=== PATIENT | female | born 1970 | race Caucasian/White ===

== ENCOUNTER 2016-12-09 17:05 | Inpatient (IN) ==
[2016-12-09] MEDS ORDERED: Naloxone 0.4 MG/ML INJ IVP PRN (21:42)
[2016-12-09] MEDS ORDERED: Acetaminophen 325 MG TABLET PO PRN (21:42)
[2016-12-09] MEDS ORDERED: Ondansetron ODT 4 MG TAB.RAPDIS SL PRN (21:42)
--- NOTE | 2016-12-09 21:49 | Internal Med History&Physical ---
Addendum entered and electronically signed by Sim Sears DO 12/10 01:42: date of note was 12/09/2016 Original Note: <Sim Sears - Last Filed: 12/10/16 01:00> Date of Encounter: 12/10/16 Time of Encounter: 21:00 Assessment and Plan (1) Cat bite of hand Current visit: Yes Status: Acute Patient suffered a domestic house cat bites at 1:30 this morning. The bite has become infected she is demonstrated cellulitis of the dorsal aspects of her left hand, clear serous drainage from the bite sites. The surface is warm to touch erythematous, no crepitus appreciated on examination. She has a low- grade fever. - CT hand demonstrates gas above the left MCP joint with high risk for infectious tenosinovitis- Orthopedics called and discussed case Plan: - IV Unasyn and Vancomycin - Acetaminophen for pain and fever - IV Toradol for pain. - Consult to Dr. Robertson orthopedic surgery. - NPO now. Qualifiers: Qualified Code(s): S61.459A - Open bite of unspecified hand, initial encounter; W55.01XA - Bitten by cat, initial encounter (2) Cellulitis Current visit: Yes Status: Acute As discussed above. Qualifiers: Qualified Code(s): L03.90 - Cellulitis, unspecified (3) History of migraine Current visit: Yes Status: Acute Patient has a history of chronic migraines which she takes sumatriptan and Topamax. States that the migraines are from her scoliosis and back pain. Plan: - Continue migraine treatment. (4) Chronic neck pain Current visit: Yes Status: Acute Per history. Patient has obvious scoliosis (5) DVT prophylaxis Current visit: Yes Status: Acute SCDs. Internal Medicine - H&P: HPI Chief complaint: Left hand swelling Admitted From: Home Plans for Post Hospital Care: Home History of present illness: Ms. Garsia is a 46 year old female presents with history of anxiety, scoliosis, chronic neck pain, migraines was transferred from an outside hospital for cellulitis of the left dorsal hand. Ms. garsia says that last evening around 1: 30 AM she was sleeping and was awoken by her cat who was fighting with another Through the window. She went to shut the window and put her hand on the lower half of the window in her cat bit the back of her hand and ring finger. She said she did not think much of it, put hydrogen peroxide on the wound and then wrapped her hand. When she unwrapped her hand this afternoon the dorsal surface was warm, swollen and clear drainage from the wounds. The erythema covering the back of her hand which was very tight to flexing her fingers at the PIP or MCP joints. She became concerned and went to the emergency department for evaluation. She denies any significant pain but has some tenderness to light palpation. She has a low-grade fever, denies any nausea vomiting diarrhea constipation chest pain chest pressure palpitations, lightheadedness dizziness or any other symptoms. She said that the nurses at the outside facility side red streak running up the left side of her hand and outlined it with a marker. With regards to her cat the cat is an indoor cat it does not have any vaccinations she also lives with a dog at [facility] and a guinea pig. The cat was recently until 1 month ago living with her neighbor and ran away for 2 or 3 weeks. She found the cat outside and had suffered a scratch wound that got infected to its back. She wanted taking the Back and it is an indoor cat. She has a cat having any abnormal behaviors, or appearing ill. At the outside hospital [facility] she received Zosyn and amoxicillin and received a tetanus shot. Past Med Surg Social Fam HX - Past Medical History Medical history: arthritis, asthma, GERD, hyperlipidemia, other Psychiatric history: anxiety, depression - Past Surgical History Surgical History: orthopedic, other - Social History Smoking Status: Current every day smoker Smokeless Tobacco Status: No Alcohol use: none Drug use: none - Family History Mother Living Status: Hx Family Cancer: Yes (Cervical) Father Living Status: Hx Family Cancer: Yes (Lung) Internal Medicine - H&P: Meds Bupropion HCl [Wellbutrin Xl] 300 mg PO DAILY 12/09/16 [History] DULoxetine [Cymbalta] 30 mg PO DAILY 12/09/16 [History] DiphenhydraMINE [Benadryl] 25 mg PO Q6H PRN 12/09/16 [History] Fluticasone Propionate Nasal [Flonase] 50 mcg NS DAILY 12/09/16 [History] Fluticasone/Salmeterol [Advair Hfa 230-21 Mcg Inhaler] 2 puff IH BID 12/09/16 [ History] HYDROcodone/Acet 5/325 mg [[place] 5-325 mg] 1 tab PO Q12H PRN 12/09/16 [History] Ipratropium/Albuterol Neb [Duoneb] 3 ml IH QAM 12/09/16 [History] Ipratropium/Albuterol Sulfate [Combivent Respimat Inhal [place]] 1 puff IH QID 05/16 [History] LORazepam [Ativan] 0.5 mg PO BID PRN 12/09/16 [History] Methocarbamol [Robaxin] 500 mg PO Q8HR 12/09/16 [History] [place]-3/Dha/Epa/Fish Oil [Fish Oil 1,000 mg Softgel] 1,000 mg PO TID 12/09/16 [ History] Psyllium Husk/Aspartame [Metamucil Fiber Singles Packet] 3.4 gm PO BID 12/09/16 [History] SUMAtriptan Succinate [Imitrex] 100 mg PO DAILY PRN 12/09/16 [History] Topiramate [Topamax] 25 mg PO BID 12/09/16 [History] Allergies ethinyl estradiol [From Seasonale contraceptive] Allergy (Verified 09/06/15 10: 26) See Comments levonorgestrel [From Seasonale contraceptive] Allergy (Verified 09/06/15 10:26) See Comments soy Allergy (Verified 09/06/15 10:26) See Comments azithromycin Adverse Reaction (Verified 09/06/15 10:26) Dizziness gabapentin [From Neurontin] Adverse Reaction (Verified 09/06/15 10:26) See Comments weight gain All Systems PM: A 10-system review of systems was performed and is negative for pertinent findings except as documented above in the HPI. - Constitutional Constitutional: fever(s) - EENT Eyes: no change in vision, no discharge, no pain, no photophobia Ears: no ear discharge, no ear pain, no tinnitus Nose, mouth and throat: no dysphagia, no nasal discharge, no neck pain, no sore throat - Cardiovascular Cardiovascular ROS IM: no chest pain, no diaphoresis, no dyspnea, no lightheadedness, no palpitations, no syncope - Respiratory Respiratory: no cough, no dyspnea, no wheezing, no excessive phlegm production - Gastrointestinal Gastrointestinal: no abdominal pain, no diarrhea, no hematemesis, no hematochezia, no melena, no nausea, no vomiting - Genitourinary Genitourinary: no change in urinary stream, no dysuria, no flank pain, no hematuria - Musculoskeletal Musculoskeletal ROS IM: no numbness, no tingling - Integumentary Integumentary IM: erythema, new lesions, sores, no rash, no unusual bruising - Neurological Neurological ROS: no confusion, no convulsions, no focal weakness, no numbness, no tingling, no tremor(s) - Hematologic/Lymphatic Hematologic/Lymphatic: no easy bruising - Constitutional Vitals: Temp Pulse Resp BP Pulse Ox 100.2 F H 87 15 105/70 95 12/09/16 20:15 12/09/16 20:15 12/09/16 20:15 12/09/16 20:15 12/09/16 20:15 Exam: General: Patient alert, awake, oriented 3, interactive, in no acute distress HEENT: Normocephalic, atraumatic, pupils equal reactive to light, nasal cavity patent and open septum median position, oral mucosa moist, uvula midline, neck supple trachea midline no palpable lymphadenopathy, no thyromegaly. Chest: Symmetric bilateral correlating with respiratory effort, effort nonlabored. Cardiac: Regular rate and rhythm, positive S1 and S2. no bruits appreciated bilateral carotids, Radial pulses 2+ bilateral, posterior tibial and dorsal pedal pulses 2+ bilateral. Respiratory: Clear to auscultation all lung gupta Abdomen: Soft, nontender, positive bowel sounds, no palpable masses appreciated on examination Extremities: Symmetric bilateral, patient has erythema, edema and serous drainage from bite mehta on the dorsal aspect of her left hand. The palmar surfaces without erythema or edema. Limited flexion at the MCP and PIP joints. She has trace edema in bilateral lower extremities for which she says chronic , right upper extremity without any acute findings. Back has scoliosis. Neurologic: No focal deficits appreciated on examination. Face symmetric, muscle strength symmetric bilateral upper and lower extremities. <Cipriano Jimenez - Last Filed: 12/10/16 01:53> Date of Encounter: 12/10/16 - Constitutional Constitutional: fever(s), no night sweats - Cardiovascular Cardiovascular ROS IM: no chest pain, no dyspnea - Musculoskeletal Musculoskeletal ROS IM: joint swelling (hand and MCP joint affectd by bite wound ) - Constitutional Vitals: Temp Pulse Resp BP Pulse Ox 98.3 F 89 14 100/67 95 12/09/16 23:10 12/09/16 23:10 12/09/16 23:10 12/09/16 23:10 12/09/16 23:10 General appearance: Present: cooperative, A&O X 3, pleasant - Eye Eye exam: Present: EOMI, PERRL. Absent: scleral icterus Pupils: Present: normal accommodation - ENT ENT exam: Present: mucous membranes dry, normal exam - Neck Neck exam general surgery: Present: supple - Respiratory Respiratory exam: Present: CTAB. Absent: rales, rhonchi, wheezes - Cardiovascular Cardiovascular exam: Present: RRR, +S1, +S2 - GI/Abdominal GI/Abdominal exam: Present: soft. 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 - Back Exam Back exam: Absent: CVA tenderness (L), CVA tenderness (R) Internal Med - H&P Results - Impressions ITS Impressions Hand CT 12/09/16 22:02 IMPRESSION: 1. At this time, the infectious process occurring in the dorsal aspect of the hand appears to be relatively superficial, without convincing evidence of fluid or gas within the tenosynovial sheath, and without definite involvement of the intrinsic musculature of the hand. 2. Note, however, that CT is suboptimal when evaluating the soft tissue structures of the hand. 3. No bony changes are found at this time. No radiopaque foreign bodies are seen. 4. This patient should be considered at very high risk for development of infectious tenosynovitis, as the soft tissue gas and the swelling is seen immediately superficial to the extensor tendon of the ring finger. D/ / Iván Duarte MD / Iván Duarte MD Interpreting Provider: Iván Duarte MD - Diagnostic Studies Other Images Status: image reviewed by me (CT hand viewed and report reviewed) - Attending Attestation I discussed the patient TE-MOAK, PMH, ROS, lab data, and exam findings with Dr. Sears. I then saw and examined patient as well. After assessing patient, I called and discussed with Dr. Sena as I am concerned she may need surgery later today or tomorrow. He and I discussed the case, and he reviewed the CT as well. We will continue IV antibiotics and monitor closely. He will see her in the morning and guide us form an orthopedic standpoint. Other than my comments and noted exam findings, I agree with Dr. Sears's assessment and plan.
[2016-12-09] MEDS ORDERED: Vancomycin 1,000 MG in D5% in Water 250 ML IVPB SCH (23:45)
[2016-12-10] MEDS ORDERED: Piperacillin/Tazobactam 3.375 GM in D5% in Water (Mini-Bag+) 100 ML IVPB SCH
[2016-12-10] MEDS: Vancomycin 1,000 MG in D5% in Water 250 ML IVPB SCH ×2 (00:16→12:57)
[2016-12-10] MEDS: Ampicillin/Sulbactam 3,000 MG in 0.9 % Sodium Chloride Mini Bag 100 ML IVPB SCH ×5 (00:16→23:58)
[2016-12-10] MEDS ORDERED: *HR* LORazepam 0.5 MG TABLET PO PRN (01:02)
[2016-12-10] MEDS ORDERED: *HR* HYDROcodone/Acet 5/325 mg TABLET PO PRN (01:02)
[2016-12-10] MEDS ORDERED: SUMAtriptan succinate 50 MG TABLET PO PRN (01:02)
[2016-12-10] MEDS: Ketorolac 30 MG/ML VIAL IVP PRN ×2 (03:15→18:04)
--- NOTE | 2016-12-10 06:00 | Orthopedic Consult Note ---
Date of Encounter: 12/10/16 Time of Encounter: 05:54 Assessment and Plan (1) Cat bite of hand Current Visit: Yes Status: Acute I did explain the diagnosis in detail with the patient. She has left dorsal hand cat bite cellulitis. There is an associated small puncture wound with minimal clearish drainage which was cultured. The patient does have improvement since beginning IV antibiotics and Toradol last night. I do not appreciate any drainable fluid collection at this point, and given the patient' s improvement my recommendation is for continued observation on IV antibiotics. Ice, elevation, and Toradol should help with symptom control. I did indicate that should symptoms worsen despite IV antibiotics then she may require bedside or even operative incision, drainage, irrigation, and debridement. I will check on her later this afternoon to reevaluate her and check her clinical progress. Qualifiers: Qualified Code(s): S61.452A - Open bite of left hand, initial encounter; W55.01XA - Bitten by cat, initial encounter History of Present Illness HPI: Ms. Garsia is a 46 year old female who was a transfer from [facility] in [facility]. Just over 24 hours ago she was bitten by her cat on her left dorsal hand. She said she sustained 3 puncture wounds, one on the dorsal hand between the long and ring fingers just proximal to the metacarpophalangeal joint areas, one along the ulnar proximal aspect of the ring finger and one near her thumb base. She washed the wounds with peroxide and placed in Scooby wrap but several hours later she had significant pain that was worsening. She went to [facility] where an x-ray was obtained that demonstrated subcutaneous gas. The emergency department physician was concerned about a significant hand infection and the patient was transferred to our [facility] to the hospitalist. The hospitalist consult to me for further evaluation and management. Since being admitted the patient was placed on Unasyn and vancomycin as well as when necessary and Toradol. She did get a dose of Toradol last night. The patient indicates that she has had improvement of the hand pain as well as improve mobility of the digits. She reports no feelings of illness or constitutional symptoms. She indicates that the cat was hers but does not have its shots. Past Med Surg Social Fam HX - Past Medical History Medical history: arthritis, asthma, GERD, hyperlipidemia, other Psychiatric history: anxiety, depression - Past Surgical History Surgical History: orthopedic, other - Social History Smoking Status: Current every day smoker Smokeless Tobacco Status: No Alcohol use: none Drug use: none - Family History Mother Living Status: Hx Family Cancer: Yes (Cervical) Father Living Status: Hx Family Cancer: Yes (Lung) Medications and Allergies Bupropion HCl [Wellbutrin Xl] 300 mg PO DAILY 12/09/16 [History] DULoxetine [Cymbalta] 30 mg PO DAILY 12/09/16 [History] DiphenhydraMINE [Benadryl] 25 mg PO Q6H PRN 12/09/16 [History] Fluticasone Propionate Nasal [Flonase] 50 mcg NS DAILY 12/09/16 [History] Fluticasone/Salmeterol [Advair Hfa 230-21 Mcg Inhaler] 2 puff IH BID 12/09/16 [ History] HYDROcodone/Acet 5/325 mg [[place] 5-325 mg] 1 tab PO Q12H PRN 12/09/16 [History] Ipratropium/Albuterol Neb [Duoneb] 3 ml IH QAM 12/09/16 [History] Ipratropium/Albuterol Sulfate [Combivent Respimat Inhal [place]] 1 puff IH QID 05/16 [History] LORazepam [Ativan] 0.5 mg PO BID PRN 12/09/16 [History] Methocarbamol [Robaxin] 500 mg PO Q8HR 12/09/16 [History] [place]-3/Dha/Epa/Fish Oil [Fish Oil 1,000 mg Softgel] 1,000 mg PO TID 12/09/16 [ History] Psyllium Husk/Aspartame [Metamucil Fiber Singles Packet] 3.4 gm PO BID 12/09/16 [History] SUMAtriptan Succinate [Imitrex] 100 mg PO DAILY PRN 12/09/16 [History] Topiramate [Topamax] 25 mg PO BID 12/09/16 [History] Allergies ethinyl estradiol [From Seasonale contraceptive] Allergy (Verified 09/06/15 10: 26) See Comments levonorgestrel [From Seasonale contraceptive] Allergy (Verified 09/06/15 10:26) See Comments soy Allergy (Verified 09/06/15 10:26) See Comments azithromycin Adverse Reaction (Verified 09/06/15 10:26) Dizziness gabapentin [From Neurontin] Adverse Reaction (Verified 09/06/15 10:26) See Comments weight gain All Systems Reviewed: Constitutional and musculoskeletal systems were reviewed and are negative unless otherwise stated in history of present illness. Physical Exam - Constitutional Vitals: Temp Pulse Resp BP Pulse Ox 98.3 F 89 14 100/67 95 12/09/16 23:10 12/09/16 23:10 12/09/16 23:10 12/09/16 23:10 12/09/16 23:10 CONSTITUTIONAL -Vitals reviewed -The patient is well developed, well nourished, well groomed PSYCHIATRIC -Fully alert and oriented x 3 -Pleasant mood LEFT UPPER EXTREMITY Inspection shows 3 small puncture wounds over the left hand, one along the hand dorsum between the long and ring fingers about a centimeter proximal to the metacarpophalangeal joints. The puncture is about 2 mm long and I can express a minimal amount of clearish fluid which I cultured. There is another puncture wound along the ulnar base of the ring finger which is scabbed over as well as a minimal puncture over the base of the left thumb radially. There is a slight hue of erythema along the hand dorsum which has been outlined by the transferring hospital, and there has been no spread. The patient indicates that the redness has improved a bit. There is a mild amount of edema along the hand dorsum which does not pit. There is tenderness to palpation diffusely about the hand dorsum especially over the area of the draining wound. There is no induration or fluctuance or crepitations. The palmar side of the hand shows no erythema or tenderness. Diagnostic Imaging: I did personally review and interpret a CT scan of the left hand obtained late last night which does show a small amount of subcutaneous gas dorsally associated with the draining wound. No retained foreign bodies are noted. Labs From Transferring Hospital CBC, ESR, and CRP lie within normal limits Results - Labs Labs: All other labs normal. Consult Discharge Plan - Plan Referrals: Mahad Harris MD [Primary Care Provider] -
[2016-12-10] MEDS: Ipratropium 1 PUFF INHALER IH SCH ×4 (06:06→22:44)
[2016-12-10 06:35] LABS: Basophils % 0.3 %; Eosinophils # 0.1 K/mcL (0.0-0.6); Hematocrit 38.5 % (35.3-44.9); Hemoglobin 12.4 g/dL (11.5-15.4); Immature Granulocytes % 0.3 % (0-4); Lymphocytes # 1.8 K/mcL (0.6-4.6); Lymphocytes % 20.8 %; Mean Corpuscular HGB Conc 32.2 g/dL (31.6-35.5); Mean Corpuscular Hemoglobin 30.4 pg (28.0-33.3); Mean Corpuscular Volume 94.4 fL (83.0-100.0); Mean Platelet Volume 8.8 fL (9.4-12.4); Monocytes % 10.8 %; Neutrophils # 5.9 K/mcL (1.6-8.9); Platelet Count 312 K/mcL (140-400); Red Blood Count 4.08 M/mcL (3.82-4.97); Segmented Neutrophils % 66.8 %
[2016-12-10 07:06] LABS: BUN/Creatinine Ratio 13 (6-26); Blood Urea Nitrogen 9 mg/dL (7-20); Calcium 8.8 mg/dL (8.6-10.8); Carbon Dioxide 26 mEq/L (19-29); Chloride 107 mEq/L (98-109); Glucose 90 mg/dL (70-99); Osmolality,Calculated 284 (280-300); Potassium 4.1 mEq/L (3.5-4.5); eGFR For African Americans > 60 (> 60); eGFR For Non-African Americans > 60 (> 60)
[2016-12-10 07:07] LABS: Sodium 138 mEq/L (136-145)
[2016-12-10] MEDS ORDERED: NON-FORMULARY MEDICATION 1 EACH EACH (Ipratropium/Albuterol Sulfate [Combivent Respimat In IH SCH (09:00)
[2016-12-10] MEDS ORDERED: Ipratropium/Albuterol Neb 3 ML IH SCH (09:00)
[2016-12-10] MEDS: BuPROPion XL (24 HR) 150 MG TABLET PO SCH (10:22)
[2016-12-10] MEDS: Topiramate 25 MG TABLET PO SCH ×2 (10:22→19:37)
[2016-12-10] MEDS ORDERED: Ipratropium/Albuterol Neb 3 ML IH PRN (11:20)
--- NOTE | 2016-12-10 11:25 | Internal Med Progress Note ---
Date of Encounter: 12/10/16 Time of Encounter: 11:22 - Assessment and plan (1) Cat bite of hand Current Visit: Yes Status: Acute Assessment and plan: No signs of tendon involvement No loculated fluid collection / no abscess noticed improving cont empirical abx with Unasyn + [facility] is on board Qualifiers: Qualified Code(s): S61.452A - Open bite of left hand, initial encounter; W55.01XA - Bitten by cat, initial encounter (2) Cellulitis Current Visit: Yes Status: Acute Assessment and plan: due to cat bite improving cont empirical abx Qualifiers: Qualified Code(s): L03.90 - Cellulitis, unspecified (3) Chronic neck pain Current Visit: Yes Status: Acute Assessment and plan: Resumed home pain meds (4) Asthma Current Visit: Yes Status: Chronic Assessment and plan: Not in exaerbation placed on Duonebs PRN here Qualifiers: Qualified Code(s): J45.30 - Mild persistent asthma, uncomplicated (5) Tobacco dependence Current Visit: Yes Status: Acute Assessment and plan: Counseled to quit smoking placed on nicotine patch (6) History of migraine Current Visit: Yes Status: Acute (7) DVT prophylaxis Current Visit: Yes Status: Acute Assessment and plan: on SQ heparin - Subjective Interval history: This is a 46 y/o F with known PMH of anxiety, chronic neck pain with narcotic dependent and migraine HAs pt admitted with Left hand cellulitis due to a cat bite. Pt stated her pain and swelling was better early this morning, however now she started feeling little more swelling and pain in her hand. No fever. NO N / V. - Constitutional Vitals: Temp Pulse Resp BP Pulse Ox 97.7 F 59 16 95/60 96 12/10/16 10:49 12/10/16 10:49 12/10/16 10:49 12/10/16 10:49 12/10/16 10:49 General appearance: Present: cooperative, A&O X 3, pleasant - Respiratory Respiratory exam: Present: decreased breath sounds, wheezes. Absent: rales, respiratory distress, rhonchi - Cardiovascular Cardiovascular exam: Present: RRR, +S1, +S2. Absent: diastolic murmur, gallop, rubs, systolic murmur - GI/Abdominal GI/Abdominal exam: Present: soft. Absent: distended, tenderness - Extremities Exam Additional comments: improving erythema and swelling over Left dorsum of hand noticed. a small cat bite long over proximal 4th MTP joint noticed. No active discharge / drainage noticed.No localized / loculated fluid collection noticed Internal Medicine: Result - Labs CBC & Chem 7: 12/10/16 05:35 12/10/16 05:35 Labs: Short CBC 12/10/16 Range/Units 05:35 WBC 8.8 (4.3-11.1) K/mcL Hgb 12.4 (11.5-15.4) g/dL Hct 38.5 (35.3-44.9) % Plt Count 312 (140-400) K/mcL Neutrophils # 5.9 (1.6-8.9) K/mcL BMP 12/10/16 05:35 Sodium 138 Potassium 4.1 Chloride 107 Carbon Dioxide 26 BUN 9 Creatinine 0.69 Glucose 90 Calcium 8.8 - Impressions Impressions Hand CT 12/09/16 22:02 IMPRESSION: 1. At this time, the infectious process occurring in the dorsal aspect of the hand appears to be relatively superficial, without convincing evidence of fluid or gas within the tenosynovial sheath, and without definite involvement of the intrinsic musculature of the hand. 2. Note, however, that CT is suboptimal when evaluating the soft tissue structures of the hand. 3. No bony changes are found at this time. No radiopaque foreign bodies are seen. 4. This patient should be considered at very high risk for development of infectious tenosynovitis, as the soft tissue gas and the swelling is seen immediately superficial to the extensor tendon of the ring finger. D/ / Iván Duarte MD / Iván Duarte MD Interpreting Provider: Iván Duarte MD Consult Discharge Plan - Plan Referrals: Mahad Harris MD [Primary Care Provider] -
[2016-12-10] MEDS: Budesonide/Formoterol 80/4.5 MDI IH SCH ×2 (11:33→22:44)
[2016-12-10] MEDS: Nicotine 14 MG PATCH.TD24 TD SCH (13:00)
--- NOTE | 2016-12-10 19:33 | Orthopedics Progress Note ---
Date of Encounter: 12/10/16 Time of Encounter: 18:30 - Assessment and Plan (1) Cat bite of hand Current Visit: Yes Status: Acute Qualifiers: Qualified Code(s): S61.452D - Open bite of left hand, subsequent encounter; W55.01XD - Bitten by cat, subsequent encounter Subjective Interval history: S: Patient seen on the floor. Despite feeling better this morning than she did last night, she indicates that her pain now is worse than it was this morning and localized to the left dorsal hand between the long and ring finger bases. No feelings of illness. Otherwise no new complaints. O: Afebrile; vital signs stable Inspection of the left hand shows no worsening of her erythema and likely some dissipation. The tooth puncture sites have sealed off. There is a slight fullness between the long and ring fingers at the base. There is significant tenderness to palpation in this area. No induration and no definite fluctuance. Mild edema to the dorsal hand. The patient can actively flex and extend all digits, extend the thumb, cross the index and long fingers, make an okay sign, and oppose the thumb. The fingertips are all grossly sensate and well-perfused, and the radial artery pulses 2+. A: Cellulitis related to a cat bite P: At this point given that her symptoms have worsened throughout the course of today despite IV antibiotics and Toradol, my recommendation was for bedside incision, drainage, irrigation, and debridement in order to encourage drainage and treat the infection. Informed consent was obtained. Risks discussed include injury to veins, arteries, nerves, tendons, ligaments, and bone, persistent infection, and the need for performing an operative debridement. The patient wished to proceed. A sterile field was set up at the bedside about the left hand and the area was anesthetized with 10 mL of 1% plain lidocaine. A 2 cm longitudinal incision was made between the ring and the long finger at the base to incorporate the cat tooth puncture wound. There is no return of grossly purulent material. The wound was spread open about the hand dorsum without any return of fluid. The subcutaneous tissue was cultured and irrigated copiously. A quarter inch iodoform packing was placed to keep the wound open. A sterile dressing was applied. The patient tolerated this well. I will continue to observe on IV antibiotics with elevation and Toradol. I will see the patient in the morning for clinical reevaluation. Objective Vital signs: Vital Signs Temp Pulse Resp BP Pulse Ox 12/10/16 19:25 97.9 F 73 18 100/68 95 12/10/16 16:13 15 96 12/10/16 15:09 97.7 F 67 15 104/60 96 12/10/16 11:37 16 96 12/10/16 10:49 97.7 F 59 16 95/60 96 12/10/16 09:38 98.6 F 75 16 123/67 96 12/10/16 06:54 98.4 F 71 16 166/90 98 12/10/16 03:30 97.8 F 78 16 101/66 95 12/09/16 23:10 98.3 F 89 14 100/67 95 12/09/16 20:15 100.2 F H 87 15 105/70 95 Intake and Output 12/10/16 12/10/16 12/10/16 07:59 15:59 23:59 Intake Total 450 / 450 370 / 370 200 / 200 Output Total 800 / 800 Balance 450 / 450 370 / 370 -600 / -600 Intake: IV Fluids 450 / 450 250 / 250 200 / 200 Unasyn 3,000 MG In 0.9 % 200 / 200 200 / 200 Sodium Chloride (Mini-Bag +) 100 ML @ 200 mls/hr IVPB Q6HR [facility] Rx#: [id number] Vancocin 1,000 MG In 250 / 250 250 / 250 Dextrose 5% 250 ML @ 166. 667 mls/hr IVPB Q12H [facility] Rx#:[id number] Oral 120 / 120 Output: Urine 800 / 800 Other: Meal Breakfast Percent of Meal Consumed 40% Weight 69.7 kg Blood Glucose* 89 Patient Weight 12/10/16 23:59 Weight 69.7 kg - Labs CBC & BMP: 12/10/16 05:35 12/10/16 05:35 Labs: Abnormal lab results MPV 8.8 fL (9.4-12.4) L 12/10/16 05:35 - VTE Documentation of Mechanical Device: Intermittent pneumatic compression device Consult Discharge Plan - Plan Referrals: Sim Pérez, TILE SHADER [Advanced Practice Nurse] - 12/18/16 2:00 pm
[2016-12-11] MEDS: Ketorolac 30 MG/ML VIAL IVP PRN ×2 (00:05→07:42)
[2016-12-11] MEDS: Vancomycin 1,000 MG in D5% in Water 250 ML IVPB SCH (00:35)
[2016-12-11] MEDS: Ipratropium 1 PUFF INHALER IH SCH ×2 (04:16→10:48)
[2016-12-11 04:40] LABS: Basophils % 0.3 %; Eosinophils # 0.1 K/mcL (0.0-0.6); Eosinophils % 0.5 %; Hematocrit 36.6 % (35.3-44.9); Hemoglobin 11.6 g/dL (11.5-15.4); Immature Granulocytes % 0.3 % (0-4); Lymphocytes # 1.3 K/mcL (0.6-4.6); Lymphocytes % 13.8 %; Mean Corpuscular HGB Conc 31.7 g/dL (31.6-35.5); Mean Corpuscular Hemoglobin 30.4 pg (28.0-33.3); Mean Corpuscular Volume 96.1 fL (83.0-100.0); Mean Platelet Volume 8.8 fL (9.4-12.4); Monocytes # 1.1 K/mcL (0.0-1.3); Monocytes % 11.3 %; Neutrophils # 7.2 K/mcL (1.6-8.9); Platelet Count 303 K/mcL (140-400); Red Blood Count 3.81 M/mcL (3.82-4.97); Red Cell Distribution Width 13.2 % (11.5-14.5); Segmented Neutrophils % 73.8 %
[2016-12-11] MEDS: Ampicillin/Sulbactam 3,000 MG in 0.9 % Sodium Chloride Mini Bag 100 ML IVPB SCH ×3 (04:52→20:18)
[2016-12-11] MEDS: BuPROPion XL (24 HR) 150 MG TABLET PO SCH (07:42)
[2016-12-11] MEDS: Nicotine 14 MG PATCH.TD24 TD SCH (07:43)
[2016-12-11] MEDS: Topiramate 25 MG TABLET PO SCH ×2 (07:43→20:15)
--- NOTE | 2016-12-11 09:22 | Orthopedics Progress Note ---
Date of Encounter: 12/11/16 Time of Encounter: 08:44 - Assessment and Plan (1) Cat bite of hand Current Visit: Yes Status: Acute Qualifiers: Qualified Code(s): S61.452D - Open bite of left hand, subsequent encounter; W55.01XD - Bitten by cat, subsequent encounter Subjective Interval history: S: Doing better after I&D last night. No new complaints. She feels that the pressures off the left hand dorsum. O: Afebrile and vitals are stable Left hand is improved. The wound is draining slightly with clearish drainage. No gross purulence. Redness has nearly fully dissipated. Minimal edema. She can freely flex and extend the digits with pain at terminal flexion. The fingertips are all grossly sensate and well-perfused, and the radial artery pulses 2+. A: Post I&D of the left hand dorsum at the bedside, doing well. P: At this point my recommendation is continued local wound care with daily dressing changes and packing changes and peroxide soaks. I did teach this to the patient. Anticipate changed to oral antibiotics in the next 24 hours. Ice , elevation, and anti-inflammatories. Objective Vital signs: Vital Signs Temp Pulse Resp BP Pulse Ox 12/11/16 08:09 98.4 F 71 16 97/64 97 12/11/16 03:35 98.3 F 76 17 105/69 95 12/11/16 00:10 98.1 F 84 18 98/66 96 12/10/16 22:44 19 96 12/10/16 19:25 97.9 F 73 18 100/68 95 12/10/16 16:13 15 96 12/10/16 15:09 97.7 F 67 15 104/60 96 12/10/16 11:37 16 96 12/10/16 10:49 97.7 F 59 16 95/60 96 12/10/16 09:38 98.6 F 75 16 123/67 96 Intake and Output 12/10/16 12/11/16 12/11/16 23:59 07:59 15:59 Intake Total 200 / 200 450 / 450 Output Total 800 / 800 700 / 700 Balance -600 / -600 -250 / -250 Intake: IV Fluids 200 / 200 450 / 450 Unasyn 3,000 MG In 0.9 % 200 / 200 200 / 200 Sodium Chloride (Mini-Bag +) 100 ML @ 200 mls/hr IVPB Q6HR [facility] Rx#: [id number] Vancocin 1,000 MG In 250 / 250 Dextrose 5% 250 ML @ 166. 667 mls/hr IVPB Q12H [facility] Rx#:[id number] Output: Urine 800 / 800 700 / 700 Other: Weight 70.03 kg Patient Weight 12/11/16 23:59 Weight 70.03 kg - Labs CBC & BMP: 12/10/16 05:35 12/10/16 05:35 Labs: Abnormal lab results MPV 8.8 fL (9.4-12.4) L 12/10/16 05:35 - VTE Documentation of Mechanical Device: Intermittent pneumatic compression device Consult Discharge Plan - Plan Referrals: Sim Pérez CNP [Advanced Practice Nurse] - 12/18/16 2:00 pm Prescriptions: HYDROcodone/Acet 5/325 mg [[place] 5-325 mg] 1 tab PO Q12H PRN #10 PRN Reason: Pain LORazepam [Ativan] 0.5 mg PO BID PRN #10 PRN Reason: Anxiety
[2016-12-11] MEDS: Budesonide/Formoterol 80/4.5 MDI IH SCH ×2 (10:47→21:48)
--- NOTE | 2016-12-11 11:31 | Internal Med Progress Note ---
Date of Encounter: 12/11/16 Time of Encounter: 11:28 - Assessment and plan (1) Cat bite of hand Current Visit: Yes Status: Acute Assessment and plan: No signs of tendon involvement s/p I & D Improving cont empirical abx with Unasyn wound cx growing G-ve rods d/c Vancomycin Ortho is on board Possible d/c home in AM with PO Abx..mostly Augmentin Qualifiers: Qualified Code(s): S61.452D - Open bite of left hand, subsequent encounter; W55.01XD - Bitten by cat, subsequent encounter (2) Cellulitis Current Visit: Yes Status: Acute Assessment and plan: due to cat bite improving cont empirical abx Qualifiers: Qualified Code(s): L03.90 - Cellulitis, unspecified (3) Chronic neck pain Current Visit: Yes Status: Acute Assessment and plan: Resumed home pain meds (4) Asthma Current Visit: Yes Status: Chronic Assessment and plan: Not in exaerbation placed on Duonebs PRN here Qualifiers: Qualified Code(s): J45.30 - Mild persistent asthma, uncomplicated (5) Tobacco dependence Current Visit: Yes Status: Acute Assessment and plan: Counseled to quit smoking placed on nicotine patch (6) History of migraine Current Visit: Yes Status: Acute (7) DVT prophylaxis Current Visit: Yes Status: Acute Assessment and plan: on SQ heparin - Subjective Interval history: This is a 46 y/o F with known PMH of anxiety, chronic neck pain with narcotic dependent and migraine HAs pt admitted with Left hand cellulitis due to a cat bite. Pt stated her pain and swelling was better today. She had bed side I & D done y/d by ortho. No fever. NO N / V. - Constitutional Vitals: Temp Pulse Resp BP Pulse Ox 98 F 60 16 93/60 97 12/11/16 10:52 12/11/16 10:52 12/11/16 10:52 12/11/16 10:52 12/11/16 10:52 General appearance: Present: cooperative, A&O X 3, pleasant - Respiratory Respiratory exam: Present: CTAB. Absent: accessory muscle use, rales, rhonchi, wheezes - Cardiovascular Cardiovascular exam: Present: RRR, +S1, +S2. Absent: diastolic murmur, gallop, rubs, systolic murmur - GI/Abdominal GI/Abdominal exam: Present: soft. Absent: mass, tenderness - Extremities Exam Additional comments: improved swelling and erythema in Left hand. a small 0.5 cm clean incision noticed over 4th MTP distally, no active discharge /drainage noticed - Psychiatric Psychiatric exam: Present: normal affect, normal mood Internal Medicine: Result - Labs CBC & Chem 7: 12/10/16 05:35 12/10/16 05:35 Labs: Short CBC 12/11/16 Range/Units 03:53 WBC 9.7 (4.3-11.1) K/mcL Hgb 11.6 (11.5-15.4) g/dL Hct 36.6 (35.3-44.9) % Plt Count 303 (140-400) K/mcL Neutrophils # 7.2 (1.6-8.9) K/mcL - VTE Documentation of Mechanical Device: Intermittent pneumatic compression device Consult Discharge Plan - Plan Referrals: Sim Pérez CNP [Advanced Practice Nurse] - 12/18/16 2:00 pm
[2016-12-11] MEDS: *HR* HYDROcodone/Acet 5/325 mg TABLET PO PRN (20:21)
[2016-12-12] MEDS: Ampicillin/Sulbactam 3,000 MG in 0.9 % Sodium Chloride Mini Bag 100 ML IVPB SCH ×4 (00:01→16:53)
--- NOTE | 2016-12-12 07:42 | Orthopedics Progress Note ---
Date of Encounter: 12/12/16 Time of Encounter: 07:41 Subjective Interval history: Patient seen this morning status post I&D of left hand. Patient with discomfort in ring finger some swelling. Improvement in swelling of hand and decrease in erythema motion improving continue with IV and box 24 hours to every dressing changes as per protocol recommend evaluation by occupational therapy. Objective Vital signs: Vital Signs Temp Pulse Resp BP Pulse Ox 12/12/16 06:41 97.8 F 71 18 102/67 97 12/12/16 03:44 97.8 F 70 16 105/69 93 12/11/16 23:17 98.2 F 75 16 106/69 95 12/11/16 21:48 15 98 12/11/16 18:54 97.9 F 68 16 108/69 95 12/11/16 14:05 98.0 F 70 15 98/61 98 12/11/16 10:52 98 F 60 16 93/60 97 12/11/16 10:42 98.0 F 73 16 94/60 96 12/11/16 08:09 98.4 F 71 16 97/64 97 Intake and Output 12/11/16 12/11/16 12/12/16 15:59 23:59 07:59 Intake Total 700 / 700 480 / 480 200 / 200 Output Total 600 / 600 1200 / 1200 550 / 550 Balance 100 / 100 -720 / -720 -350 / -350 Intake: IV Fluids 100 / 100 100 / 100 200 / 200 Unasyn 3,000 MG In 0.9 % 100 / 100 100 / 100 200 / 200 Sodium Chloride (Mini-Bag +) 100 ML @ 200 mls/hr IVPB Q6HR [facility] Rx#: [id number] Oral 600 / 600 380 / 380 0 / 0 Output: Urine 600 / 600 1200 / 1200 550 / 550 Other: Meal Lunch Dinner Percent of Meal Consumed 55% 65% # Voids 1 Weight 69.8 kg 69.8 kg Patient Weight 12/12/16 23:59 Weight 69.8 kg - Labs CBC & BMP: 12/10/16 05:35 12/10/16 05:35 Labs: Abnormal lab results MPV 8.8 fL (9.4-12.4) L 12/10/16 05:35 - VTE Documentation of Mechanical Device: Intermittent pneumatic compression device Consult Discharge Plan - Plan Referrals: Leeth,Sim E, INFERTILITY NURSE [Advanced Practice Nurse] - 12/18/16 2:00 pm Prescriptions: HYDROcodone/Acet 5/325 mg [[place] 5-325 mg] 1 tab PO Q12H PRN #10 PRN Reason: Pain LORazepam [Ativan] 0.5 mg PO BID PRN #10 PRN Reason: Anxiety
[2016-12-12] MEDS: Topiramate 25 MG TABLET PO SCH ×2 (08:31→20:17)
[2016-12-12] MEDS: BuPROPion XL (24 HR) 150 MG TABLET PO SCH (08:31)
[2016-12-12] MEDS: Nicotine 14 MG PATCH.TD24 TD SCH (08:32)
[2016-12-12] MEDS: Budesonide/Formoterol 80/4.5 MDI IH SCH ×2 (08:44→20:24)
--- NOTE | 2016-12-12 09:39 | Internal Med Progress Note ---
Date of Encounter: 12/12/16 Time of Encounter: 09:36 - Assessment and plan (1) Cat bite of hand Current Visit: Yes Status: Acute Assessment and plan: No signs of tendon involvement s/p I & D Improving wound cx growing Klebsiella cont empirical abx with Unasyn Ortho is on board Ortho recommend to continue IV abx another day Possible d/c home in AM with PO Abx..mostly Augmentin Qualifiers: Qualified Code(s): S61.452D - Open bite of left hand, subsequent encounter; W55.01XD - Bitten by cat, subsequent encounter (2) Cellulitis Current Visit: Yes Status: Acute Assessment and plan: due to cat bite improving cont empirical abx Qualifiers: Qualified Code(s): L03.90 - Cellulitis, unspecified (3) Chronic neck pain Current Visit: Yes Status: Acute Assessment and plan: Resumed home pain meds (4) Asthma Current Visit: Yes Status: Chronic Assessment and plan: Not in exaerbation placed on Duonebs PRN here Qualifiers: Qualified Code(s): J45.30 - Mild persistent asthma, uncomplicated (5) Tobacco dependence Current Visit: Yes Status: Acute Assessment and plan: Counseled to quit smoking placed on nicotine patch (6) History of migraine Current Visit: Yes Status: Acute (7) DVT prophylaxis Current Visit: Yes Status: Acute Assessment and plan: on SQ heparin - Subjective Interval history: This is a 46 y/o F with known PMH of anxiety, chronic neck pain with narcotic dependent and migraine HAs pt admitted with Left hand cellulites due to a cat bite. Pt stated her pain and swelling was better today. She had bed side I & D done by ortho on 12/10/16. No fever. NO N / V. Improving swelling and erythema in Left hand - Constitutional Vitals: Temp Pulse Resp BP Pulse Ox 97.8 F 71 18 102/67 96 12/12/16 06:41 12/12/16 06:41 12/12/16 08:46 12/12/16 06:41 12/12/16 08:46 General appearance: Present: cooperative, A&O X 3, pleasant - Respiratory Respiratory exam: Present: CTAB. Absent: accessory muscle use, rales, rhonchi, wheezes - Cardiovascular Cardiovascular exam: Present: RRR, +S1, +S2. Absent: diastolic murmur, gallop, rubs, systolic murmur - GI/Abdominal GI/Abdominal exam: Present: soft. Absent: distended, tenderness - Extremities Exam Additional comments: a small 1cm size incision noticed over roximal 4th MTP dorsal area, a small incision over dorsum of 4th finger noticed. improving swelling and erythema noticed. No active drainage / discharge noticed now - Psychiatric Psychiatric exam: Present: normal affect, normal mood Internal Medicine: Result - Labs CBC & Chem 7: 12/10/16 05:35 12/10/16 05:35 - VTE Documentation of Mechanical Device: Intermittent pneumatic compression device Consult Discharge Plan - Plan Referrals: Sim Pérez CNP [Advanced Practice Nurse] - 12/18/16 2:00 pm Prescriptions: HYDROcodone/Acet 5/325 mg [[place] 5-325 mg] 1 tab PO Q12H PRN #10 PRN Reason: Pain LORazepam [Ativan] 0.5 mg PO BID PRN #10 PRN Reason: Anxiety
[2016-12-12] MEDS: *HR* HYDROcodone/Acet 5/325 mg TABLET PO PRN (16:53)
[2016-12-13] MEDS: Ampicillin/Sulbactam 3,000 MG in 0.9 % Sodium Chloride Mini Bag 100 ML IVPB SCH ×2 (00:04→05:03)
[2016-12-13 06:39] VITALS: BP 100/66
--- NOTE | 2016-12-13 07:55 | Orthopedics Progress Note ---
Date of Encounter: 12/13/16 Time of Encounter: 07:55 Subjective Interval history: Patient doing better this morning, less swelling better motion. Patient is stable to be discharged on oral antibiotics. We will follow up with Dr. Robertson. Objective Vital signs: Vital Signs Temp Pulse Resp BP Pulse Ox 12/13/16 06:35 98.3 F 54 18 100/66 99 12/13/16 03:50 98.4 F 73 14 102/67 93 12/13/16 00:24 98.4 F 74 14 98/61 95 12/12/16 23:22 98.4 F 74 14 98/61 95 12/12/16 20:26 18 95 12/12/16 18:45 98.2 F 76 14 99/61 96 12/12/16 14:51 98.3 F 67 18 103/67 99 12/12/16 10:56 98.3 F 61 18 97/61 94 12/12/16 08:46 18 96 Intake and Output 12/12/16 12/12/16 12/13/16 15:59 23:59 07:59 Intake Total 830 / 830 340 / 340 740 / 740 Output Total 1000 / 1000 600 / 600 1300 / 1300 Balance -170 / -170 -260 / -260 -560 / -560 Intake: IV Fluids 100 / 100 100 / 100 200 / 200 Unasyn 3,000 MG In 0.9 % 100 / 100 100 / 100 200 / 200 Sodium Chloride (Mini-Bag +) 100 ML @ 200 mls/hr IVPB Q6HR [facility] Rx#: [id number] Oral 730 / 730 240 / 240 540 / 540 Output: Urine 1000 / 1000 600 / 600 1300 / 1300 Other: Meal Lunch Percent of Meal Consumed 100% Weight 69.4 kg Patient Weight 12/13/16 23:59 Weight 69.4 kg - Labs CBC & BMP: 12/10/16 05:35 12/10/16 05:35 Labs: Abnormal lab results MPV 8.8 fL (9.4-12.4) L 12/10/16 05:35 - VTE Documentation of Mechanical Device: Intermittent pneumatic compression device Consult Discharge Plan - Plan Referrals: Sim Pérez CNP [Advanced Practice Nurse] - 12/18/16 2:00 pm Prescriptions: HYDROcodone/Acet 5/325 mg [[place] 5-325 mg] 1 tab PO Q12H PRN #10 PRN Reason: Pain LORazepam [Ativan] 0.5 mg PO BID PRN #10 PRN Reason: Anxiety
[2016-12-13] MEDS: Budesonide/Formoterol 80/4.5 MDI IH SCH (08:08)
[2016-12-13] MEDS: BuPROPion XL (24 HR) 150 MG TABLET PO SCH (09:14)
[2016-12-13] MEDS: Topiramate 25 MG TABLET PO SCH (09:14)
[2016-12-13] MEDS: Nicotine 14 MG PATCH.TD24 TD SCH (09:16)
--- NOTE | 2016-12-13 10:26 | Discharge Summary ---
Date of Encounter: 12/13/16 Time of Encounter: 10:20 - Discharge Diagnosis (1) Abscess of hand, left Priority: Primary Status: Acute Comments: s/p I & D.. Cx grew Klebsiella (2) Cat bite of hand Priority: Primary Status: Acute Qualifiers: Qualified Code(s): S61.452D - Open bite of left hand, subsequent encounter; W55.01XD - Bitten by cat, subsequent encounter (3) Cellulitis Priority: Primary Status: Acute Qualifiers: Qualified Code(s): L03.90 - Cellulitis, unspecified (4) Chronic neck pain Priority: Secondary Status: Acute (5) Asthma Priority: Secondary Status: Chronic Qualifiers: Qualified Code(s): J45.30 - Mild persistent asthma, uncomplicated (6) Tobacco dependence Priority: Secondary Status: Acute (7) History of migraine Priority: Secondary Status: Acute - Discharge Medications Prescriptions: Amoxicillin/Clavulanate [Augmentin] 875 mg PO BIDWM 7 Days HYDROcodone/Acet 5/325 mg [[place] 5-325 mg] 1 tab PO Q12H PRN #10 PRN Reason: Pain LORazepam [Ativan] 0.5 mg PO BID PRN #10 PRN Reason: Anxiety Saccharomyces Boulardii [Florastor] 250 mg PO BID #14 capsule Home Medications: Bupropion HCl [Wellbutrin Xl] 300 mg PO DAILY 12/09/16 [History] DULoxetine [Cymbalta] 30 mg PO DAILY 12/09/16 [History] DiphenhydraMINE [Benadryl] 25 mg PO Q6H PRN 12/09/16 [History] Fluticasone Propionate Nasal [Flonase] 50 mcg NS DAILY 12/09/16 [History] Fluticasone/Salmeterol [Advair Hfa 230-21 Mcg Inhaler] 2 puff IH BID 12/09/16 [ History] Ipratropium/Albuterol Neb [Duoneb] 3 ml IH QAM 12/09/16 [History] Ipratropium/Albuterol Sulfate [Combivent Respimat Inhal [place]] 1 puff IH QID 05/16 [History] Methocarbamol [Robaxin] 500 mg PO Q8HR 12/09/16 [History] [place]-3/Dha/Epa/Fish Oil [Fish Oil 1,000 mg Softgel] 1,000 mg PO TID 12/09/16 [ History] Psyllium Husk/Aspartame [Metamucil Fiber Singles Packet] 3.4 gm PO BID 12/09/16 [History] SUMAtriptan Succinate [Imitrex] 100 mg PO DAILY PRN 12/09/16 [History] Topiramate [Topamax] 25 mg PO BID 12/09/16 [History] HYDROcodone/Acet 5/325 mg [[place] 5-325 mg] 1 tab PO Q12H PRN #10 12/11/16 [Rx] LORazepam [Ativan] 0.5 mg PO BID PRN #10 12/11/16 [Rx] Nicotine Patch [Nicoderm] 14 mg TD DAILY 12/11/16 [Rx] Amoxicillin/Clavulanate [Augmentin] 875 mg PO BIDWM 7 Days 12/13/16 [Rx] Saccharomyces Boulardii [Florastor] 250 mg PO BID #14 capsule 12/13/16 [Rx] Allergies/Adverse Reactions: Allergies ethinyl estradiol [From Seasonale contraceptive] Allergy (Verified 09/06/15 10: 26) See Comments levonorgestrel [From Seasonale contraceptive] Allergy (Verified 09/06/15 10:26) See Comments soy Allergy (Verified 09/06/15 10:26) See Comments azithromycin Adverse Reaction (Verified 09/06/15 10:26) Dizziness gabapentin [From Neurontin] Adverse Reaction (Verified 09/06/15 10:26) See Comments weight gain Date of admission: 12/10/16 06:09 Primary care physician: Ketan Pennington Consults: 12/10/16 00:57 Consult to Orthopedic Surgery [CONS] Routine Consulting Provider: Malik Sena Reason for Consult: tenosynovitis s/p cat bite Time Notified: 00:59 Call Completed: Yes 12/12/16 07:42 Consult to Occupational Therapy [CONS] Stat Comment: Evaluate, develop and implement POC Reason for Consult: Status post I&D left hand work on hand motion and finger motion swelling improvement - Patient Status Disposition: Home, Self-Care - Discharge Instructions Follow Up With: Sim Pérez PLEATER [facility] [Advanced Practice Nurse] - 12/18/16 2:00 pm Additional Instructions: f/u with Dr. Robertson ( Ortho ) in 5- 7 days Hospital course: Ms. Garsia is a 46 y/o F with known PMH of anxiety, chronic neck pain with narcotic dependent and migraine HAs pt admitted with Left hand cellulites due to a cat bite. Pt was admitted to hospital and placed on broad-spectrum antibiotic with Unasyn. Patient was also seen by Orthopedician Dr. Robertson, who performed a bedside I & D. Her symptoms started improving slowly and wound culture growing at Klebsiella bacteria. Patient remained afebrile through this hospitalization and her white count also stayed within normal limits. So I am discharging her home in a stable condition today with oral Abx Po Augemntin for another 7 days. Also recommend to follow up with Ortho Dr. Robertson in 5-7 days. - Time Spent with Patient Total time spent providing and/or coordinating discharge services: - Constitutional Vitals: Temp Pulse Resp BP Pulse Ox 98.3 F 54 16 100/66 98 12/13/16 06:35 12/13/16 06:35 12/13/16 08:08 12/13/16 06:35 12/13/16 08:08 General appearance: Present: cooperative, A&O X 3, pleasant - Respiratory Respiratory exam: Present: CTAB. Absent: accessory muscle use, rales, rhonchi, wheezes - Cardiovascular Cardiovascular exam: Present: RRR, +S1, +S2. Absent: diastolic murmur, gallop, rubs, systolic murmur - GI/Abdominal GI/Abdominal exam: Present: normal bowel sounds, soft. Absent: distended, tenderness - Extremities Exam Additional comments: improved erythema and swelling over Left dorsum of hand and left 4th finger. - VTE Documentation of Mechanical Device: Intermittent pneumatic compression device
[2016-12-13] MEDS ORDERED: Aminoglycoside Consult 1 EACH MC ONE (11:28)
== END 2016-12-13 11:29 | disposition home or self-care (01) | DRG 384 ==
LOC: 3ANU
PROVIDERS: ADMIT Internal Medicine; ATTEND Family Medicine